=== PATIENT | male | born 2000 | race Hispanic/Latino ===

== ENCOUNTER 2021-10-01 00:13 | Emergency (ER) | payer OTHER, SELFPAY ==
[2021-10-01 00:18] VITALS: BP 126/74; PULSE 105; RESP 22; TEMP 37.3; O2SAT 95; BMI 43.0
[2021-10-01 00:37] LABS: COVID19 -Nasal RAPID POSITIVE (Negative)
--- NOTE | 2021-10-01 00:41 | DI.RAD.S_ITS ---
PROCEDURE: XR CHEST 1V INDICATIONS: covid TECHNIQUE: One view of the chest was acquired. COMPARISON: None. FINDINGS: Surgical changes and devices: None. Lungs and pleura: [id number] bilateral patchy pulmonary opacities. Mediastinum: Mediastinal contours appear normal. Heart size is normal. Bones and chest wall: No suspicious bony lesions. Overlying soft tissues appear unremarkable. IMPRESSION: [id number] bilateral pulmonary opacities most consistent with pneumonia. Dictated by: Caroline Leal M.D. on 10/01/2021 at 1:13 Approved by: Caroline Leal M.D. on 10/01/2021 at 1:13
[2021-10-01 00:47] VITALS: PULSE 104; O2SAT 95
--- NOTE | 2021-10-01 00:49 | ED.URI ---
HPI - URI/Sore Throat General Chief Complaint: Upper Respiratory Symptoms Stated Complaint: cough/fever/nausea x7 days Time Seen by Provider: 10/01/21 00:46 Source: patient Mode of arrival: Ambulatory History of Present Illness HPI Narrative: 20-year-old male nonsmoker, though he does vape, presents with about 1 week of general upper respiratory symptoms including some headache, nasal congestion, sore throat and nausea. Over the past 24 hours he has developed a persistent dry, hacking cough and has had multiple episodes of vomiting. He admits to subjective fever and body aches. He denies any exposure to persons known to be positive for COVID. He was not vaccinated against COVID. Review of Systems Review of Systems Narrative: GENERAL: See HPI HEENT: See HPI RESPIRATORY: See HPI CARDIOVASCULAR: Denies chest pain, palpitations, orthopnea, edema, GASTROINTESTINAL: Denies nausea, vomiting, abdominal pain, diarrhea, constipation, melena. : Denies dysuria, frequency, incontinence, hematuria, urinary retention. MUSCULOSKELETAL: denies weakness, joint pain, or bony pain SKIN: Denies rash, skin lesions, or other NEUROLOGIC: Denies weakness, headache, numbness, change in speech, confusion, seizures, incoordination. PSYCHIATRIC: No concerning psychosocial issues. 12 point review of systems is negative except for those stated above Patient History Social History Smoking Status: Current every day smoker Smoking Status: Current every day smoker Substance Use Type: does not use Exam Narrative Exam Narrative: GENERAL: [20 year old patient appears stated age. Well-developed patient, in mild distress. HEAD: Atraumatic. Normocephalic. EYES: Pupils equal round and reactive. Extraocular motions intact. No scleral icterus. No injection or drainage. ENT: Nose without bleeding, purulent drainage. Throat without erythema, tonsillar hypertrophy or exudate. Airway patent. NECK: Trachea midline. Non tender CARDIOVASCULAR: Regular rate and rhythm without murmurs, gallops, or rubs. RESPIRATORY: Clear to auscultation. Breath sounds equal bilaterally. No wheezes, rales, or rhonchi. No obvious respiratory distress, tachypnea, hypoxemia, increased work of breathing with use of accessory muscles GASTROINTESTINAL: Abdomen soft, non-tender, nondistended. EXTREMITIES: No edema or joint tenderness. BACK: Nontender without deformity or crepitance. No flank tenderness. NEURO: AOx3. SKIN: No rash or erythema of visible areas Initial Vital Signs Initial Vital Signs: Vital Signs Temperature 99.2 F 10/01/21 00:18 Pulse Rate 105 H 10/01/21 00:18 Respiratory Rate 22 10/01/21 00:18 Blood Pressure 126/74 10/01/21 00:18 Pulse Oximetry 95 10/01/21 00:18 Course Orders Ordered: ED Orders 10/01/21 00:21 COVID19 -Nasal swab/Pre-Proc Stat 10/01/21 00:41 Chest [XR chest 1V] Stat Discontinued Medications Sodium Chloride (Normal Saline 0.9%) 1,000 mls @ 1,000 mls/hr IV BOLUS ONE Stop: 10/01/21 02:11 Last Infusion: 10/01/21 02:07 Dose: 0 mls/hr Documented by: Admin: 10/01/21 01:10 Dose: 1,000 mls/hr Documented by: BJORN Ondansetron HCl (Ondansetron 4 Mg Odt Prepack) 1 bottle MISC SEEINSTR ONE Stop: 10/01/21 01:25 Last Admin: 10/01/21 01:39 Dose: 1 bottle Documented by: BJORN Vital Signs Vital signs: Vital Signs - 8 hr 10/01/21 00:18 10/01/21 00:47 10/01/21 01:00 Temperature 99.2 F Pulse Rate 105 H 104 H 106 H Respiratory Rate 22 Blood Pressure 126/74 135/75 Pulse Oximetry 95 95 96 10/01/21 01:30 10/01/21 02:00 Temperature Pulse Rate 98 H 100 H Respiratory Rate Blood Pressure 118/88 126/77 Pulse Oximetry 96 97 MDM - URI/Sore Throat Lab Data Labs: Lab Results 10/01/21 Range/Units 00:21 SARS-CoV-2 (PCR) Positive H (Negative) MDM Narrative Medical decision making narrative: Patient has a reassuring history and physical exam, he has no significant work of breathing, hypoxemia or use of accessory muscles. Patient is treated with fluids and antiemetics and vital signs improved, he is able to tolerate orals and is appropriate for discharge. He has been given return precautions and questions have been answered to his apparent satisfaction Discharge Plan Departure Patient Disposition: Home Clinical Impression: COVID-19 Instructions: DI for COVID-19 (Suspected or Confirmed ) Activity Restrictions/Additional Instructions: *You have been diagnosed with [ COVID-19] *What to do: * per recommendations from the CDC and the [facility] Department of Health * stay home except to get medical care. Restrict activities outside your home, except for getting medical care. Do not go to work, school, or public areas. Avoid using public transportation, ride sharing, or taxis. * separate yourself from other people in your home. * call ahead before visiting your doctor * Wear a facemask * Cover your coughs and sneezes * Clean your hands often * Avoid sharing household items * Clean all high-touch services every day * Monitor your symptoms and seek prompt medical attention if your illness is worsening, particularly with difficulty in breathing. You may discontinue your isolation when: 1. You have been fever-free for at least 24 hours without the use of fever reducing medication, AND 2. Your symptoms are getting better, AND 3. At least 5 days have passed since symptoms first appeared 4. If you have fever, continue to stay home until fever resolves Individuals with laboratory confirmed COVID-19 who have not had any symptoms may discontinue home isolation when at least 5 days have passed since the date of their first COVID-19 diagnostic test and have had no subsequent illness You should notifiy any friends and family that have been in close contact *If up to date on COVID Vaccines, then they do not need to quarantine unless symptoms develop. Get tested on day 5 (or sooner if symptoms develop). Take precautions and watch for symptoms until day 10 *If NOT up to date on COVID Vaccines, then CDC recommends quarantine for at least 5 full days. Wear a well fitted mask at home if you must be around others. If they develop symptoms they should get tested. If they remain asymptomatic they should get tested on day 5. They should take precautions and monitor for symptoms until day 10.
[2021-10-01 01:00] VITALS: BP 135/75; PULSE 106; O2SAT 96
[2021-10-01] MEDS: SODIUM CHLORIDE 0.9% 1,000 ML 1000 ML IV (01:10)
[2021-10-01 01:30] VITALS: BP 118/88; PULSE 98; O2SAT 96
[2021-10-01] MEDS: ONDANSETRON 4 MG ODT PREPACK 1 BOTTLE MISC (01:39)
[2021-10-01 02:00] VITALS: BP 126/77; PULSE 100; O2SAT 97
== END 2021-10-01 02:11 | disposition home or self-care (01) ==
PROVIDERS: Emergency Provider Emergency Medicine
DX: U07.1 COVID-19 (principal); F17.290 Nicotine dependence, other tobacco product, uncomplicated
CPT/HCPCS: 71045; 87635; 96360; 99283; C9803